=== PATIENT | male | born 1975 | race Hispanic/Latino ===

== ENCOUNTER 2018-09-19 07:23 | Outpatient (CLI) | payer OTHER ==
--- NOTE | 2018-09-19 08:08 | ULT ---
GALLBLADDER ULTRASOUND: Date: 09/19/18 HISTORY: Elevated liver function enzymes. COMPARISON: None. TECHNIQUE: Utilizing a multihertz transducer, sonographic imaging of the right upper quadrant is performed in th e longitudinal and transverse plane. FINDINGS: The head of the pancreas has a normal echotexture. The remainder of the pancreas is obscured by bowel gas. Main portal vein appears to be patent. Appropriate direction of flow. Increased echogenicity of the liver may be due to hepatic steatosis or hepatocellular disease. Subseq uent evaluation for hepatic masses and intrahepatic biliary dilatation is limited. Right hepatic lobe measures 17.0 cm. Right kidney has a normal cortical echotexture. No hydronephrosis. Right kidney measures 6.9 x 6.1 x 10.8 cm. Limited evaluation of common bile duct. Gallbladder is surgically absent. IMPRESSION: Hepatic steatosis versus hepatocellular disease given the increased echogenicity of the liver. Correl ate clinically. POS: [facility]
== END 2018-09-19 07:24 | disposition home or self-care (01) ==
LOC: BICULT 07:23
PROVIDERS: ATTEND Family Medicine
DX: R74.0 Nonspecific elevation of levels of transaminase and lactic acid dehydrogenase [LDH] (principal)
CPT/HCPCS: 76705

== ENCOUNTER 2021-01-04 16:33 | Emergency (ER) | payer OTHER | END 2021-01-04 18:10 | disposition home or self-care (01) | LOC: ERS 16:33 | DX: S01.01XA Laceration without foreign body of scalp, initial encounter (principal); E11.9 Type 2 diabetes mellitus without complications; F17.290 Nicotine dependence, other tobacco product, uncomplicated; Z79.84 Long term (current) use of oral hypoglycemic drugs; Z79.899 Other long term (current) drug therapy; W22.8XXA Striking against or struck by other objects, initial encounter | CPT/HCPCS: 12002 ==